=== PATIENT | male | born 1955 | race Caucasian/White ===

== ENCOUNTER 2017-07-29 08:28 | Emergency (ER) | payer MEDICAID ==
[~2017-07-29] VITALS: Ht 170.2 cm; Wt 66.0 kg
[2017-07-29] MEDS ORDERED: BACITRACIN ZINC OINT UDPKT TOP ONE (10:30)
[2017-07-29 10:48] LABS: BASOPHILS % 1.3 % (0.0-2.0); EOSINOPHILS % 0.3 % (0.0-5.0); HEMATOCRIT. 44.4 % (42.0-52.0); HEMOGLOBIN. 14.6 g/dL (14.0-18.0); LYMPHOCYTES % 15.1 % (20.0-50.0); MEAN CORPUSCULAR HEMOGLOBIN 25.2 pg (28.0-32.0); MEAN CORPUSCULAR VOLUME 76.3 fL (80.0-94.0); MEAN PLATELET VOLUME 6.5 fl (7.4-10.4); MONOCYTES % 3.7 % (2.0-8.0); NEUTROPHILS % 79.6 % (40.0-76.0); PLATELET 280 x1000/uL (130-400); RED BLOOD CELL COUNT 5.82 mill/uL (4.7-6.1); RED CELL DISTRIBUTION WIDTH 15.3 % (11.6-14.6)
[2017-07-29 10:59] LABS: CARBON DIOXIDE 25 mEq/L (21-32); CHLORIDE 106 mEq/L (98-107); ETHANOL BLOOD 168 mg/dL
[2017-07-29 11:19] VITALS: BP 179/97
== END 2017-07-29 12:29 | disposition home or self-care (01) ==
LOC: ER 09:31
DX: F10.229 Alcohol dependence with intoxication, unspecified (principal); S30.813A Abrasion of scrotum and testes, initial encounter; X58.XXXA Exposure to other specified factors, initial encounter; Y93.9 Activity, unspecified; Y92.9 Unspecified place or not applicable; Y90.6 Blood alcohol level of 120-199 mg/100 ml; E16.2 Hypoglycemia, unspecified; E83.51 Hypocalcemia; R74.8 Abnormal levels of other serum enzymes; F17.210 Nicotine dependence, cigarettes, uncomplicated; Z71.6 Tobacco abuse counseling
CPT/HCPCS: 36415; 80053; 85025; 99284; 99406; G0482; Z7610

== ENCOUNTER 2017-10-11 09:45 | Emergency (ER) | payer SELFPAY ==
[~2017-10-11] VITALS: Ht 167.6 cm; Wt 54.3 kg
[2017-10-11] MEDS ORDERED: AMOXICILLIN/POTASSIUM CLAVULANATE 500/125MG TAB PO ONE (11:00)
[2017-10-11] MEDS: MICONAZOLE NITRATE 2% OINT 71GM TOP SCH ×3 (11:00→11:13)
[2017-10-11 11:43] VITALS: BP 142/78
== END 2017-10-11 11:54 | disposition home or self-care (01) ==
LOC: ER 10:02
DX: H66.93 Otitis media, unspecified, bilateral (principal); B35.6 Tinea cruris; N50.82 Scrotal pain; R10.30 Lower abdominal pain, unspecified; F10.20 Alcohol dependence, uncomplicated; F17.200 Nicotine dependence, unspecified, uncomplicated
CPT/HCPCS: 99282; 99283

== ENCOUNTER 2017-11-17 15:32 | Emergency (ER) | payer SELFPAY ==
[~2017-11-17] VITALS: Ht 162.6 cm; Wt 60.0 kg
[2017-11-17 16:56] LABS: BASOPHILS % 0.7 % (0.0-2.0); CHLORIDE 96 mEq/L (98-107); HEMATOCRIT. 45.9 % (42.0-52.0); MEAN CORPUSCULAR HEMOGLOBIN 27.5 pg (28.0-32.0); MEAN CORPUSCULAR VOLUME 79.1 fL (80.0-94.0); MONOCYTES % 8.9 % (2.0-8.0); NEUTROPHILS % 71.4 % (40.0-76.0); PLATELET 157 x1000/uL (130-400)
[2017-11-17 17:00] LABS: ETHANOL BLOOD 215 mg/dL
[2017-11-17 17:10] LABS: CLARITY URINE CLEAR (CLEAR); COLOR URINE YELLOW (YELLOW); KETONES URINE NEGATIVE (NEGATIVE); LEUKOCYTE ESTERASE URINE NEGATIVE (NEGATIVE); NITRITE URINE NEGATIVE (NEGATIVE); OCCULT BLOOD URINE 2+ (NEGATIVE); PH URINE 5.5 (4.5-8.0); PROTEIN URINE TRACE (NEGATIVE)
[2017-11-17 17:23] LABS: *AMPHETAMINES SCREEN URINE NEGATIVE (NEGATIVE); *BARBITURATES SCREEN URINE NEGATIVE (NEGATIVE); CANNABINOID URINE SCREEN NEGATIVE (NEGATIVE)
[2017-11-17 17:24] LABS: *BENZODIAZEPINES SCREEN URINE NEGATIVE (NEGATIVE); *COCAINE SCREEN URINE NEGATIVE (NEGATIVE); METHADONE URINE SCREEN NEGATIVE (NEGATIVE); OPIATES URINE SCREEN NEGATIVE (NEGATIVE); PHENCYCLIDINE URINE SCREEN NEGATIVE (NEGATIVE)
[2017-11-17 17:43] LABS: CREATINE KINASE 156 IU/L (39-308)
[2017-11-17 18:00] VITALS: BP 140/76
== END 2017-11-17 18:37 | disposition home or self-care (01) ==
LOC: ER 15:32
DX: R25.2 Cramp and spasm (principal); R03.0 Elevated blood-pressure reading, without diagnosis of hypertension
CPT/HCPCS: 36415; 80053; 80305; 81003; 82550; 83690; 85025; 99284; G0482; Z7610